=== PATIENT | male | born 1995 | race Caucasian/White ===

== ENCOUNTER 2022-09-18 18:26 | Emergency (ER) | payer OTHER ==
[~2022-09-18] VITALS: Ht 190.5 cm; Wt 120.2 kg
[2022-09-18] MEDS ORDERED: IBU800 MG PO (20:30)
== END 2022-09-18 20:46 | disposition home or self-care (01) ==
LOC: ER 18:26
DX: S43.005A Unspecified dislocation of left shoulder joint, initial encounter (principal); X58.XXXA Exposure to other specified factors, initial encounter; Y93.89 Activity, other specified; Y92.832 Beach as the place of occurrence of the external cause; Y99.9 Unspecified external cause status